=== PATIENT | female | born 1995 | race Caucasian/White ===

== ENCOUNTER 2020-05-25 06:39 | Inpatient (IN) ==
[2020-05-25] MEDS ORDERED: DILAUDID INJ ONE (06:48)
[2020-05-25] MEDS ORDERED: LR 1000 ML IV 1,000 ML IV ONE ×2 (06:48→06:52)
[2020-05-25] MEDS ORDERED: DROPERIDOL ONE (06:48)
[2020-05-25] MEDS ORDERED: D5 1/2 NS 1L W PITOCIN 20 UNITS/L 20 UNITS/1,000 ML BAG IV ONE (06:48)
[2020-05-25] MEDS ORDERED: ANCEF 1 GRAM IV PREMIX* 2 G/100 ML BAG IV ONE (06:52)
[2020-05-25] MEDS ORDERED: XYLOCAINE 1 % (PLAIN) ONE ×2 (06:54→08:00)
[2020-05-25] MEDS ORDERED: ANCEF 1 GRAM IV PREMIX* 1 G/50 ML BAG IV ONE (07:06)
[2020-05-25] MEDS ORDERED: REGLAN INJ 10 MG VIAL ONE (07:31)
[2020-05-25] MEDS ORDERED: DIPRIVAN VIAL ONE (07:31)
[2020-05-25] MEDS ORDERED: ZOFRAN INJ 4 MG VIAL ONE (07:31)
[2020-05-25] MEDS ORDERED: PITOCIN ONE (07:31)
[2020-05-25] MEDS ORDERED: EPHEDRINE SULFATE INJ ONE (07:31)
[2020-05-25] MEDS ORDERED: XYLOCAINE 2 % (PLAIN) ONE (07:31)
[2020-05-25] MEDS ORDERED: NEO-SYNEPHRINE INJ ONE (07:31)
[2020-05-25] MEDS ORDERED: NS 1000 ML 1,000 ML ONE (08:38)
[2020-05-25] MEDS ORDERED: PHENERGAN INJ 25 MG IM PRN ×2 (09:09→09:34)
[2020-05-25] MEDS ORDERED: REGLAN INJ 10 MG VIAL IVP PRN (09:09)
[2020-05-25] MEDS ORDERED: ZOFRAN INJ 4 MG VIAL IVP PRN ×2 (09:09→09:34)
[2020-05-25] MEDS ORDERED: BENADRYL INJ 50 MG VIAL IVP PRN (09:09)
[2020-05-25] MEDS ORDERED: BENADRYL INJ 50 MG VIAL ONE (09:15)
[2020-05-25] MEDS ORDERED: MYLICON TAB 80 MG CHEW PO PRN (09:34)
[2020-05-25] MEDS ORDERED: PERCOCET TAB 5/325 MG PO PRN (09:34)
[2020-05-25] MEDS: PRENATAL PLUS PO SCH (14:11)
[2020-05-25] MEDS: TORADOL 30 MG VIAL IVP SCH ×3 (14:11→21:25)
[2020-05-25 18:08] VITALS: BP 122/68
[2020-05-26] MEDS: TORADOL 30 MG VIAL IVP SCH ×2 (05:26→10:00)
[2020-05-26 06:08] LABS: HEMATOCRIT 28.3 % (36.0-47.0); HEMOGLOBIN 9.4 g/dL (12.0-16.0)
[2020-05-26] MEDS: PRENATAL PLUS PO SCH (08:28)
--- NOTE | 2020-05-26 09:22 | NOTE.PROBC ---
Progress Note OB-C/S Subjective Data Subjective: No complaints, decreased lochia. Tolerating regular diet. No N/V. Ambulating well. Hall draining well. Pain under good control with toradol. Objective Data Result Diagrams: 05/26/20 05:26 Objective Data: CV= RRR no MRG Lungs=CTA Bilaterally Abd=(+) BS, soft, ND, appropriately tender near incision. Bandage removed. Incision clean/dry/intact, no erythema, no bleeding, no discharge. Dermabond/St itches intact. Fundus firm/NT/ at 2 cm below umbilicus. Ext= No edema, NT, No Cords. Graduated Compression Stockings/Sequential Compression Devices Bilaterally. Plan (1) Postcesarean section: Plan: She may be ready to go home this afternoon with close f/u in our office next Friday or Friday.
[2020-05-26] MEDS ORDERED: TORADOL 30 MG VIAL IM PRN (10:00)
== END 2020-05-26 14:30 | disposition home or self-care (01) | DRG 788 ==
LOC: LD 06:39 → MERGE 07:30 → MED/SURG 09:41
PROVIDERS: ADMIT Obstetrics & Gynecology; ATTEND Obstetrics & Gynecology
DX: O34.211 Maternal care for low transverse scar from previous cesarean delivery; Z3A.39 39 weeks gestation of pregnancy; N85.8 Other specified noninflammatory disorders of uterus; Z37.0 Single live birth